=== PATIENT | female | born 1935 | race Caucasian/White ===

== ENCOUNTER 2017-05-31 11:36 | Emergency (ER) | payer OTHER, MEDICARE ==
[~2017-05-31] VITALS: Ht 157.5 cm; Wt 61.1 kg
[2017-05-31 13:13] LABS: HEMATOCRIT 36.6 % (36.0-46.0); MCH 30.5 PG (29.0-34.0); MCHC 32.8 G/DL (30.0-36.0); MCV 92.9 FL (83-99); MEAN PLAT.VOLUME 8.7 uM^3 (9.5-12.4); PLATELET COUNT 233 K/uL (156-360); RBC DIS.WIDTH-SD 47.9 % (39-53); RED BLOOD COUNT 3.94 M/uL (3.80-5.20)
[2017-05-31 13:21] LABS: CHLORIDE 106 mEq/L (99-109); POTASSIUM 4.7 mEq/L (3.7-5.4); SODIUM 140 mEq/L (136-147)
[2017-05-31 13:24] LABS: GLUCOSE 87 mg/dL (70-99)
[2017-05-31 13:25] LABS: ANION GAP 8 MEQ/L (2-14)
[2017-05-31 13:26] LABS: TOTAL BILIRUBIN 0.2 mg/dL (0.0-1.0)
[2017-05-31 13:27] LABS: ALKALINE PHOSPHATASE 60 IU/L (3-129); GFR ESTIMATE (CALCULATED) 46 mL/min/
[2017-05-31 13:28] LABS: UREA NITROGEN (BUN) 22 mg/dL (9-23)
[2017-05-31 13:38] LABS: ADD MIUA? YES; BILIRUBIN NEGATIVE; BLOOD NEGATIVE; COLOR YELLOW ((YELLOW)); GLUCOSE (STRIP) NEGATIVE; KETONES NEGATIVE; LEUKOCYTES LARGE; NITRITE NEGATIVE; PROTEIN (STRIP) NEGATIVE; SPECIFIC GRAVITY 1.015 (1.000-1.030); UROBILINOGEN 0.2 MG/DL (0.2-1.0)
[2017-05-31 14:05] LABS: BACTERIA RARE /HPF; EPITHELIAL CELLS 1+ /HPF; MUCUS NONE SEEN /LPF
[2017-05-31] MEDS ORDERED: KEFLEX500 MG PO (14:41)
[2017-05-31 15:06] VITALS: BP 121/63
== END 2017-05-31 15:07 | disposition home or self-care (01) ==
LOC: EME 11:36
PROVIDERS: Nurse Practitioner Family
DX: R41.89 Other symptoms and signs involving cognitive functions and awareness (principal); N39.0 Urinary tract infection, site not specified; V49.40XA Driver injured in collision with unspecified motor vehicles in traffic accident, initial encounter; Z87.891 Personal history of nicotine dependence
CPT/HCPCS: 70450; 80053; 81003; 85027; 87086; 93005; 99281; 99284